=== PATIENT | female | born 1985 | race Caucasian/White ===

== ENCOUNTER 2023-06-22 11:16 | Outpatient (CLI) | payer BC, SELFPAY | END 2023-06-22 11:17 | disposition home or self-care (01) | PROVIDERS: PCP Family Medicine; Visit Provider Family Medicine | DX: Z00.00 Encounter for general adult medical examination without abnormal findings (principal); E03.9 Hypothyroidism, unspecified; Z13.6 Encounter for screening for cardiovascular disorders | CPT/HCPCS: 80053; 80061; 84443; 86376 ==

== ENCOUNTER 2025-02-09 15:06 | Outpatient (CLI) | payer OTHER, SELFPAY | END 2025-02-09 15:07 | disposition home or self-care (01) | PROVIDERS: PCP Family Medicine; Visit Provider Family Medicine | DX: E03.9 Hypothyroidism, unspecified (principal); Z13.6 Encounter for screening for cardiovascular disorders; Z13.1 Encounter for screening for diabetes mellitus | CPT/HCPCS: 80053; 80061; 84443 ==